=== PATIENT | male | born 1980 | race Caucasian/White ===

== ENCOUNTER → 2017-10-13 07:42 | Outpatient (CLI) | payer OTHER, SELFPAY ==
--- NOTE | 2017-10-13 07:50 | US_ITS ---
STUDY: ABDOMINAL ULTRASOUND - RIGHT UPPER QUADRANT REASON FOR VISIT: Male, 36 years old. Elevated liver enzymes. TECHNIQUE: Ultrasound evaluation of the right upper quadrant was performed with real-time and static alex-scale imaging. TECHNICAL QUALITY: Adequate. COMPARISON: 11/23/2014 FINDINGS: Liver: The liver measures 15.1 cm. There is normal echogenicity of the liver. The bile ducts are within normal limits. There is hepatic color flow. The direction of portal flow is hepatopetal. There is no demonstrated mass lesion. Gallbladder: Normal distended gallbladder. The gallbladder wall measures 0.18 mm. There is a negative sonographic Pruitt's sign. There is no pericholecystic fluid. There are no gallstones. Common Bile Duct (C.B.D.): The common bile duct measures 2.9 mm. Pancreas: Normal size of the head, body and tail of the visualized pancreas. There is normal echogenicity of the pancreas. There is no demonstrated pancreatic mass or cyst. No dilated pancreatic duct identified. Right Kidney: Normal size of the right kidney. The right kidney measures 11.9 x 6.8 x 6.3 cm. Normal renal cortex. The right cortex measures 1.8 cm. There is no demonstrated renal mass or cyst. There is no right hydronephrosis. US/Liver IMPRESSION: Nonacute right upper quadrant ultrasound examination. No sonographic finding of acute cholecystitis or complete biliary ductal obstruction identified. Electronically Signed: Miguel A Cristobal, at 15:45 EDT Tel , Service support ,
== END ==
PROVIDERS: Family Provider Family Medicine; PCP Family Medicine; Visit Provider Family Medicine
DX: R74.8 Abnormal levels of other serum enzymes (principal)
CPT/HCPCS: 76705